=== PATIENT | female | born 1950 | race Caucasian/White ===

== ENCOUNTER 2016-10-28 10:35 | Inpatient (IN) | payer MEDICARE, OTHER ==
--- NOTE | 2016-10-28 10:58 | ER Document Report ---
ED Cardiac - General Stated Complaint: HEART ISSUES Notes: Patient says that she awakened about 2 AM this morning with a headache and feeling nauseated. EMS was called this morning because she continues to have nausea, but has not vomited. She still has the headache as well. It is global and not associated with any neurologic symptoms or deficits. Patient has long- standing atrial fibrillation and is on Eliquis 5 mg twice a day. Patient was just in [place] yesterday seeing her internal medicine doctor ( Latha) who told her he was going to try to get her scheduled to be cardioverted. Yesterday's visit was a routine, scheduled visit and she felt fine. As mentioned, the patient has chronic atrial fibrillation. She has undergone 2 cardiac ablation treatments unsuccessfully. 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 Patient denies any difficulty breathing or shortness of breath. Denies vomiting or diarrhea. Denies any recent illness such as cough cold or chest congestion. No fevers. - Related Data Allergies/Adverse Reactions: No Known Allergies Allergy (Verified 01/03/14 20:52) Past Medical History - Social History Smoking Status: Unknown if Ever Smoked Cigarette use (# per day): No Family History: Reviewed & Not Pertinent - Past Medical History Cardiac Medical History: Reports: Hx Atrial Fibrillation, Hx Hypercholesterolemia, Hx Hypertension Neurological Medical History: Denies: Hx Cerebrovascular Accident Endocrine Medical History: Denies: Hx Diabetes Mellitus Type 1, Hx Diabetes Mellitus Type 2 GI Medical History: Reports: Hx Gastroesophageal Reflux Disease Past Surgical History: Reports: Hx Cardiac Surgery - [id number] and 01/03/14 - Immunizations Hx Diphtheria, Pertussis, Tetanus Vaccination: Yes Review of Systems - Review of Systems Notes: REVIEW OF SYSTEMS: CONSTITUTIONAL : Denies fever. EENT: Denies eye, ear, nose or mouth or throat pain or other symptoms. CARDIOVASCULAR: Denies chest pain. RESPIRATORY: Denies cough, chest congestion, or shortness of breath. GASTROINTESTINAL: Denies abdominal pain or diarrhea. Is nauseated. GENITOURINARY: Denies difficulty or painful urinating, urinary frequency, blood in urine. MUSCULOSKELETAL: Denies back or neck pain. Denies joint pain or swelling. SKIN: Denies rash or skin lesions. NEUROLOGICAL: Denies LOC or altered mental status. Has a headache--see history of present illness. Denies sensory loss or motor deficits. ALL OTHER SYSTEMS REVIEWED AND NEGATIVE. Physical Exam - Vital signs Vitals: Resp 28 H 10/28/16 10:54 Interpretation: Tachycardic, Other - Irregular pulse - Notes Notes: PHYSICAL EXAMINATION: GENERAL: Well-appearing, in no acute distress. Vital signs: Irregular, atrial fibrillation rhythm with heart rate of about 126 at this time my examination. HEAD: Atraumatic, normocephalic. EYES: Pupils equal round and reactive to light, extraocular movements intact. ENT: oropharynx clear without exudates. Moist mucous membranes. NECK: Normal range of motion, supple. LUNGS: Breath sounds clear and equal bilaterally. HEART: Irregularly irregular rate and rhythm without murmurs. ABDOMEN: Soft, nontender. No guarding or rebound. BACK: No tenderness throughout entire back. EXTREMITIES: Normal range of motion without pain. NEUROLOGICAL: Normal speech, normal gait. Normal sensory, motor, and reflex exams. Awake, alert, and oriented x3. Cranial nerves normal. PSYCH: Normal mood, normal affect. SKIN: Warm, dry, no rashes. Course - Re-evaluation Re-evalutation: 10/28/16 13:32 Spoke with patient's primary care provider in [place], Dr. Azul. 10/28/16 14:12 Have spoken with transfer center at [facility]. 10/28/16 15:11 Spoke with transfer center again at [facility]. They do not have any medical beds and do not expect to have any medical beds today. Informed the patient and family of this situation and they understand and are agreeable to being admitted to this hospital. I spoke with Dr. Butt who will admit patient to IMCU for antibiotic treatment and control of her A. fib with RVR. - Vital Signs Vital signs: Temp Pulse Resp BP Pulse Ox 25 H 114/67 98 10/28/16 14:00 10/28/16 13:00 10/28/16 14:00 - Laboratory Result Diagrams: 10/28/16 12:00 10/28/16 12:00 Laboratory results interpreted by me: 10/28/16 10/28/16 10/28/16 12:00 12:00 12:00 WBC 24.9 H RDW 14.2 H Seg Neuts % (Manual) 93 H Lymphocytes % (Manual) 2 L Abs Neuts (Manual) 23.2 H PT 17.3 H Est GFR (Non-Af Amer) 59 L Glucose 135 H Urine Blood Ur Leukocyte Esterase 10/28/16 14:16 WBC RDW Seg Neuts % (Manual) Lymphocytes % (Manual) Abs Neuts (Manual) PT Est GFR (Non-Af Amer) Glucose Urine Blood MODERATE H Ur Leukocyte Esterase LARGE H Patient urine looks like a urinary infection. Critical Care Note - Critical Care Note Total time excluding time spent on procedures (mins): 70 Discharge - Discharge Clinical Impression: Atrial fibrillation with rapid ventricular response Urinary tract infection Qualifiers: Urinary tract infection type: site unspecified Hematuria presence: without hematuria Qualified Code(s): N39.0 - Urinary tract infection, site not specified Condition: Stable Disposition: ADMITTED INPATIENT Admitting Provider: Hospitalist Unit Admitted: [facility]
[2016-10-28] MEDS ORDERED: ONDANSETRON HCL INJ/PF 4 MG/2 ML SDV IV ONE (11:19)
[2016-10-28] MEDS ORDERED: DILTIAZEM HCL INJ 25 MG/5 ML VIAL IV ONE ×2 (11:25→17:21)
[2016-10-28 12:11] LABS: HEMATOCRIT 36.4 % (36.0-47.0); HGB HCT DIFFERENCE -0.4; MEAN CORPUSCULAR HEMOGLOBIN 27.4 pg (27.0-33.4); MEAN CORPUSCULAR HGB CONC 33.1 g/dL (32.0-36.0); MEAN CORPUSCULAR VOLUME 83 fl (80-97); RED CELL DISTRIBUTION WIDTH 14.2 % (11.5-14.0); WHITE BLOOD COUNT 24.9 10^3/uL (4.0-10.5)
[2016-10-28 12:17] LABS: PROTHROMBIN TIME 17.3 SEC (11.4-15.4)
[2016-10-28 12:32] LABS: ALANINE AMINOTRANSFERASE 26 U/L (9-52); ALKALINE PHOSPHATASE 114 U/L (38-126); ANION GAP 14 (5-19); ASPARTATE AMINO TRANSFERASE 15 U/L (14-36); BILIRUBIN,DIRECT 0.3 mg/dL (0.0-0.4); BILIRUBIN,TOTAL 1.1 mg/dL (0.2-1.3); BLOOD UREA NITROGEN 18 mg/dL (7-20); CALCIUM 9.8 mg/dL (8.4-10.2); CARBON DIOXIDE 27 mmol/L (22-30); CHLORIDE 99 mmol/L (98-107); CREATINE KINASE 35 U/L (30-135); CREATININE RESULT 0.95 mg/dL (0.52-1.25); GLUCOSE 135 mg/dL (75-110); POTASSIUM 4.2 mmol/L (3.6-5.0); SODIUM 139.9 mmol/L (137-145); TOTAL PROTEIN 7.2 g/dL (6.3-8.2)
[2016-10-28 12:35] LABS: BASOPHILS % (MANUAL) 0 % (0-2); EOSINOPHILS % (MANUAL) 0 % (0-6); LYMPHOCYTES % (MANUAL) 2 % (13-45); TOTAL CELLS COUNTED 100
[2016-10-28 12:36] LABS: ANISOCYTOSIS SLIGHT; OVALOCYTES SLIGHT; POIKILOCYTOSIS SLIGHT
[2016-10-28 12:49] LABS: CREATINE KINASE MB < 0.22 ng/mL (<4.55); TROPONIN I < 0.012 ng/mL
[2016-10-28] MEDS ORDERED: CEFTRIAXONE 2 GM/D5W RTU 50 ML IV ONE (13:32)
--- NOTE | 2016-10-28 14:20 | EKG REPORT ---
SEVERITY:- ABNORMAL ECG - ATRIAL FIBRILLATION, V-RATE 90-185 BORDERLINE R WAVE PROGRESSION, ANTERIOR LEADS BORDERLINE T ABNORMALITIES, ANTERIOR LEADS : Confirmed by: Yisel Daniel 28-Oct-2016 14:20:03
[2016-10-28 14:37] LABS: APPEARANCE,URINE CLOUDY; BILIRUBIN,URINE NEGATIVE (NEGATIVE); GLUCOSE, URINE NEGATIVE (NEGATIVE); KETONES,URINE NEGATIVE (NEGATIVE); LEUKOCYTE ESTERASE,URINE LARGE (NEGATIVE); NITRITE,URINE NEGATIVE (NEGATIVE); PROTEIN,URINE NEGATIVE (NEGATIVE); URINE SPECIFIC GRAVITY 1.021; UROBILINOGEN,URINE NEGATIVE mg/dL (<2.0)
[2016-10-28] MEDS ORDERED: PROMETHAZINE HCL 25 MG TABLET PO ONE (15:12)
[2016-10-28] MEDS ORDERED: OXYCODONE-ACETAMINOPHEN 5-325 MG TABLET PO ONE (15:12)
[2016-10-28] MEDS ORDERED: NORMAL SALINE 1000 ML 1,000 ML IV PRN (17:13)
--- NOTE | 2016-10-28 17:35 | PDOC H&P ---
History of Present Illness Admission Date/PCP: 10/28/16 15:22 Patient complains of: headache History of Present Illness: SHAWN DANIEL is a 66 year old female Patient says that she awakened about 2 AM this morning with a headache and feeling nauseated. EMS was called this morning because she continues to have nausea, but has not vomited. She still has the headache as well. It is global and not associated with any neurologic symptoms or deficits. Patient has long- standing atrial fibrillation and is on Eliquis 5 mg twice a day. Patient was just in [place] yesterday seeing her internal medicine doctor ( Latha) who told her he was going to try to get her scheduled to be cardioverted. Yesterday's visit was a routine, scheduled visit and she felt fine. As mentioned, the patient has chronic atrial fibrillation. She has undergone 2 cardiac ablation treatments unsuccessfully. 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 Patient denies any difficulty breathing or shortness of breath. Denies vomiting or diarrhea. Denies any recent illness such as cough cold or chest congestion. No fevers. Upon evaluation in the ER she was diagnosed of UTI and Afib with RVR She was treated with IV Ceftriaxone , IV fluids and Cardizem Drip She was subsequently admitted to [facility] as an inpatient Past Medical History Cardiac Medical History: Reports: Atrial Fibrillation, Hyperlipidema, Hypertension Endocrine Medical History: Denies: Diabetes Mellitus Type 1, Diabetes Mellitus Type 2 GI Medical History: Reports: Gastroesophageal Reflux Disease Social History Information Source: Patient Smoking Status: Never Smoker Frequency of Alcohol Use: None Hx Recreational Drug Use: No - Advance Directive Resuscitation Status: Full Code Surrogate healthcare decision maker:: Concetta Brother Family History Family History: Reviewed & Not Pertinent Parental Family History Reviewed: Yes Children Family History Reviewed: Yes Sibling(s) Family History Reviewed.: Yes Medication/Allergy Home Medications: Apixaban [Eliquis] 5 mg PO Q12 10/28/16 Atorvastatin Calcium 20 mg PO QHS 10/28/16 Carvedilol 25 mg PO Q12 10/28/16 Cetirizine HCl [Allergy] 10 mg PO QPM 10/28/16 Enalapril Maleate [Vasotec 10 mg Tablet] 10 mg PO BID 10/28/16 Furosemide [Lasix] 40 mg PO PRN PRN 10/28/16 Hydrochlorothiazide 12.5 mg PO DAILY 10/28/16 Rabeprazole Sodium 20 mg PO DAILY 10/28/16 Allergies/Adverse Reactions: No Known Allergies Allergy (Verified 01/03/14 20:52) Review of Systems Constitutional: PRESENT: headache(s). ABSENT: chills, fever(s), weight gain, weight loss Eyes: ABSENT: visual disturbances Ears: ABSENT: hearing changes Cardiovascular: ABSENT: chest pain, dyspnea on exertion, edema, orthropnea, palpitations Respiratory: ABSENT: cough, hemoptysis Gastrointestinal: PRESENT: nausea. ABSENT: abdominal pain, constipation, diarrhea, hematemesis, hematochezia, vomiting Genitourinary: ABSENT: dysuria, hematuria Musculoskeletal: ABSENT: joint swelling Integumentary: ABSENT: rash, wounds Neurological: ABSENT: abnormal gait, abnormal speech, confusion, dizziness, focal weakness, syncope Psychiatric: ABSENT: anxiety, depression, homidical ideation, suicidal ideation Endocrine: ABSENT: cold intolerance, heat intolerance, polydipsia, polyuria Hematologic/Lymphatic: ABSENT: easy bleeding, easy bruising Physical Exam Vital Signs: Temp Pulse Resp BP Pulse Ox 25 H 114/67 98 10/28/16 14:00 10/28/16 13:00 10/28/16 14:00 General appearance: PRESENT: no acute distress, obese Head exam: PRESENT: atraumatic, normocephalic Eye exam: PRESENT: conjunctiva pink, EOMI, PERRLA. ABSENT: scleral icterus Neck exam: ABSENT: carotid bruit, JVD, lymphadenopathy, thyromegaly Respiratory exam: PRESENT: clear to auscultation mehnaz. ABSENT: rales, rhonchi, wheezes Cardiovascular exam: PRESENT: irregular rhythm. ABSENT: diastolic murmur, rubs , systolic murmur Pulses: PRESENT: normal dorsalis pedis pul GI/Abdominal exam: PRESENT: normal bowel sounds, soft. ABSENT: distended, guarding, mass, organolmegaly, rebound, tenderness Rectal exam: PRESENT: deferred Extremities exam: PRESENT: full ROM. ABSENT: calf tenderness, clubbing, pedal edema Neurological exam: PRESENT: alert, awake, oriented to person, oriented to place , oriented to time, oriented to situation, CN II-XII grossly intact. ABSENT: motor sensory deficit Psychiatric exam: PRESENT: appropriate affect, normal mood. ABSENT: homicidal ideation, suicidal ideation Skin exam: PRESENT: dry, intact, warm. ABSENT: cyanosis, rash Results Laboratory Results: Labs- All tests 24 hr 10/28/16 10/28/16 10/28/16 12:00 12:00 12:00 WBC 24.9 H RBC 4.40 Hgb 12.0 Hct 36.4 MCV 83 MCH 27.4 MCHC 33.1 RDW 14.2 H Plt Count 220 Total Counted 100 Seg Neutrophils % Not Reportable Seg Neuts % (Manual) 93 H Lymphocytes % Not Reportable Lymphocytes % (Manual) 2 L Atypical Lymphs % 2 Monocytes % Not Reportable Monocytes % (Manual) 3 Eosinophils % Not Reportable Eosinophils % (Manual) 0 Basophils % Not Reportable Basophils % (Manual) 0 Absolute Neutrophils Not Reportable Abs Neuts (Manual) 23.2 H Absolute Lymphocytes Not Reportable Abs Lymphs (Manual) 1.0 Absolute Monocytes Not Reportable Abs Monocytes (Manual) 0.7 Absolute Eosinophils Not Reportable Absolute Eos (Manual) 0.0 Absolute Basophils Not Reportable Abs Basophils (Manual) 0.0 Platelet Comment ADEQUATE Poikilocytosis SLIGHT Anisocytosis SLIGHT Ovalocytes SLIGHT PT INR Sodium 139.9 Potassium 4.2 Chloride 99 Carbon Dioxide 27 Anion Gap 14 BUN 18 Creatinine 0.95 Est GFR ( Amer) > 60 Est GFR (Non-Af Amer) 59 L Glucose 135 H Calcium 9.8 Total Bilirubin 1.1 Direct Bilirubin 0.3 Indirect Bilirubin Not Reportable Neonat Total Bilirubin Not Reportable AST 15 ALT 26 Alkaline Phosphatase 114 Creatine Kinase 35 CK-MB (CK-2) < 0.22 Troponin I < 0.012 Total Protein 7.2 Albumin 4.0 Urine Color Urine Appearance Urine pH Ur Specific [place] Urine Protein Urine Glucose (UA) Urine Ketones Urine Blood Urine Nitrite Urine Bilirubin Urine Urobilinogen Ur Leukocyte Esterase Urine WBC (Auto) Urine RBC (Auto) Urine Bacteria (Auto) Urine WBC Clumps Squamous Epi Cells Auto U Non-Squamous Epis Auto Urine Mucus (Auto) Urine Ascorbic Acid 10/28/16 10/28/16 12:00 14:16 WBC RBC Hgb Hct MCV MCH MCHC RDW Plt Count Total Counted Seg Neutrophils % Seg Neuts % (Manual) Lymphocytes % Lymphocytes % (Manual) Atypical Lymphs % Monocytes % Monocytes % (Manual) Eosinophils % Eosinophils % (Manual) Basophils % Basophils % (Manual) Absolute Neutrophils Abs Neuts (Manual) Absolute Lymphocytes Abs Lymphs (Manual) Absolute Monocytes Abs Monocytes (Manual) Absolute Eosinophils Absolute Eos (Manual) Absolute Basophils Abs Basophils (Manual) Platelet Comment Poikilocytosis Anisocytosis Ovalocytes PT 17.3 H INR 1.36 Sodium Potassium Chloride Carbon Dioxide Anion Gap BUN Creatinine Est GFR ( Amer) Est GFR (Non-Af Amer) Glucose Calcium Total Bilirubin Direct Bilirubin Indirect Bilirubin Neonat Total Bilirubin AST ALT Alkaline Phosphatase Creatine Kinase CK-MB (CK-2) Troponin I Total Protein Albumin Urine Color YELLOW Urine Appearance CLOUDY Urine pH 5.0 Ur Specific [place] 1.021 Urine Protein NEGATIVE Urine Glucose (UA) NEGATIVE Urine Ketones NEGATIVE Urine Blood MODERATE H Urine Nitrite NEGATIVE Urine Bilirubin NEGATIVE Urine Urobilinogen NEGATIVE Ur Leukocyte Esterase LARGE H Urine WBC (Auto) >182 Urine RBC (Auto) 29 Urine Bacteria (Auto) 1+ Urine WBC Clumps FEW Squamous Epi Cells Auto 2 U Non-Squamous Epis Auto 2 Urine Mucus (Auto) RARE Urine Ascorbic Acid NEGATIVE EKG Comments: ATRIAL FIBRILLATION, V-RATE 90-185 [AMI1] . BORDERLINE R WAVE PROGRESSION, ANTERIOR LEADS [T0AN] . BORDERLINE T ABNORMALITIES, ANTERIOR LEADS Impressions: Chest X-Ray 10/28/16 10:44 IMPRESSION: NO ACUTE RADIOGRAPHIC FINDING IN THE CHEST. Head CT 10/28/16 11:18 IMPRESSION: No acute intracranial abnormality identified. Assessment & Plan - Diagnosis (1) Atrial fibrillation with rapid ventricular response Is this a current diagnosis for this admission?: Yes (2) Urinary tract infection Qualifiers: Urinary tract infection type: site unspecified Hematuria presence: without hematuria Qualified Code(s): N39.0 - Urinary tract infection, site not specified Is this a current diagnosis for this admission?: Yes - Time Time Spent: Greater than 70 Minutes - Inpatient Certification Based on my medical assessment, after consideration of the patient's comorbidities, presenting symptoms, or acuity I expect that the services needed warrant INPATIENT care.: Yes I certify that my determination is in accordance with my understanding of Medicare's requirements for reasonable and necessary INPATIENT services [42 CFR 412.3e].: Yes Medical Necessity: Need For IV Fluids, Need For Continuous Telemetry Monitoring , Need for IV Antibiotics
[2016-10-28] MEDS ORDERED: DILTIAZEM HCL/D5W 125 ML IV PRN (18:12)
[2016-10-28] MEDS: APIXABAN 5 MG TABLET PO SCH (21:57)
[2016-10-28] MEDS: CARVEDILOL 12.5 MG TABLET PO SCH (21:58)
[2016-10-28] MEDS: ATORVASTATIN CALCIUM 20 MG TABLET PO SCH (21:59)
[2016-10-28] MEDS: CEFTRIAXONE 1 GM/D5W RTU 50 ML IV SCH (21:59)
[2016-10-28] MEDS ORDERED: (PENDING PHARMACY ID) (Carvedilol [Carvedilol] 25 MG) PO SCH (22:00)
[2016-10-28] MEDS: FAMOTIDINE INJ/PF 20 MG/2 ML SDV IV SCH (22:00)
[2016-10-29] MEDS: CETIRIZINE 10 MG TABLET PO SCH ×2 (02:46→17:33)
[2016-10-29 06:34] LABS: HEMATOCRIT 33.8 % (36.0-47.0); HEMOGLOBIN 11.2 g/dL (12.0-15.5); HGB HCT DIFFERENCE -0.2; MEAN CORPUSCULAR HEMOGLOBIN 27.4 pg (27.0-33.4); MEAN CORPUSCULAR HGB CONC 33.2 g/dL (32.0-36.0); MEAN CORPUSCULAR VOLUME 83 fl (80-97); RED BLOOD COUNT 4.09 10^6/uL (3.72-5.28); RED CELL DISTRIBUTION WIDTH 14.2 % (11.5-14.0); WHITE BLOOD COUNT 20.1 10^3/uL (4.0-10.5)
[2016-10-29 06:50] LABS: ALANINE AMINOTRANSFERASE 21 U/L (9-52); ALBUMIN 3.5 g/dL (3.5-5.0); ALKALINE PHOSPHATASE 93 U/L (38-126); ANION GAP 13 (5-19); ASPARTATE AMINO TRANSFERASE 17 U/L (14-36); BASOPHILS % (MANUAL) 0 % (0-2); BILIRUBIN,DIRECT 0.4 mg/dL (0.0-0.4); BILIRUBIN,TOTAL 0.8 mg/dL (0.2-1.3); BLOOD UREA NITROGEN 29 mg/dL (7-20); CALCIUM 8.9 mg/dL (8.4-10.2); CARBON DIOXIDE 25 mmol/L (22-30); CHLORIDE 99 mmol/L (98-107); CHOLESTEROL 124.69 mg/dL (0-200); CREATININE RESULT 1.39 mg/dL (0.52-1.25); Direct HDL 50 mg/dL (>40); EOSINOPHILS % (MANUAL) 2 % (0-6); GLUCOSE 117 mg/dL (75-110); LYMPHOCYTES % (MANUAL) 7 % (13-45); POTASSIUM 3.9 mmol/L (3.6-5.0); SODIUM 136.6 mmol/L (137-145); TOTAL CELLS COUNTED 100; TOTAL PROTEIN 6.5 g/dL (6.3-8.2); TRIGLYCERIDES 76 mg/dL (<150)
[2016-10-29 06:51] LABS: RBC MORPHOLOGY COMMENT NORMO-CYTIC/CHROMIC
[2016-10-29 07:01] LABS: DIRECT LDL 48 mg/dL (<100)
[2016-10-29 07:12] LABS: TROPONIN I < 0.012 ng/mL
--- NOTE | 2016-10-29 09:36 | EKG REPORT ---
SEVERITY:- ABNORMAL ECG - ATRIAL FIBRILLATION, V-RATE 65-106 BORDERLINE R WAVE PROGRESSION, ANTERIOR LEADS BORDERLINE T ABNORMALITIES, DIFFUSE LEADS : Confirmed by: Yisel Daniel 29-Oct-2016 09:35:59
[2016-10-29] MEDS ORDERED: (PENDING PHARMACY ID) (Rabeprazole Sodium [Rabeprazole Sodium] 20 MG) PO SCH (10:00)
[2016-10-29] MEDS: CEFTRIAXONE 1 GM/D5W RTU 50 ML IV SCH (10:00)
[2016-10-29] MEDS ORDERED: HYDROCHLOROTHIAZIDE 12.5 MG CAPSULE PO SCH (10:00)
[2016-10-29] MEDS: FAMOTIDINE INJ/PF 20 MG/2 ML SDV IV SCH ×2 (10:08→22:00)
[2016-10-29] MEDS: LANSOPRAZOLE 30 MG TAB.RAP.DR PO SCH (10:08)
[2016-10-29] MEDS: CARVEDILOL 12.5 MG TABLET PO SCH ×2 (10:08→22:00)
[2016-10-29] MEDS: APIXABAN 5 MG TABLET PO SCH ×2 (10:09→22:01)
[2016-10-29] MEDS ORDERED: DILTIAZEM HCL 120 MG CAP.SR.24H PO ONE (14:00)
--- NOTE | 2016-10-29 15:02 | PDOC PROGRESS REPORT ---
Subjective Progress Note for:: 10/29/16 Subjective:: Patient is feeling a lot better No fever no chills The atrial fibrillation is now rate controlled at the rate of 60-70 Leukocytosis is persistent Urine culture is pending Physical Exam Vital Signs: Temp Pulse Resp BP Pulse Ox 98.3 F 76 12 107/59 L 97 10/29/16 12:00 10/29/16 12:00 10/29/16 12:00 10/29/16 14:02 10/29/16 12:00 Intake & Output 10/28/16 10/29/16 10/30/16 00:59 00:59 00:59 Intake Total 637 Output Total 200 Balance 437 Weight 119.5 kg 120 kg General appearance: PRESENT: no acute distress, well-developed, well-nourished Head exam: PRESENT: atraumatic, normocephalic Eye exam: PRESENT: conjunctiva pink, EOMI, PERRLA. ABSENT: scleral icterus Ear exam: PRESENT: normal external ear exam Mouth exam: PRESENT: moist, tongue midline Neck exam: ABSENT: carotid bruit, JVD, lymphadenopathy, thyromegaly Respiratory exam: PRESENT: clear to auscultation mehnaz. ABSENT: rales, rhonchi, wheezes Cardiovascular exam: PRESENT: RRR. ABSENT: diastolic murmur, rubs, systolic murmur Pulses: PRESENT: normal dorsalis pedis pul Vascular exam: PRESENT: normal capillary refill GI/Abdominal exam: PRESENT: normal bowel sounds, soft. ABSENT: distended, guarding, mass, organolmegaly, rebound, tenderness Rectal exam: PRESENT: deferred Extremities exam: PRESENT: full ROM. ABSENT: calf tenderness, clubbing, pedal edema Neurological exam: PRESENT: alert, awake, oriented to person, oriented to place , oriented to time, oriented to situation, CN II-XII grossly intact. ABSENT: motor sensory deficit Psychiatric exam: PRESENT: appropriate affect, normal mood. ABSENT: homicidal ideation, suicidal ideation Skin exam: PRESENT: dry, intact, warm. ABSENT: cyanosis, rash Results Laboratory Results: 10/29/16 06:03 10/29/16 06:03 10/29/16 10/29/16 10/29/16 06:03 06:03 06:10 WBC 20.1 H RBC 4.09 Hgb 11.2 L Hct 33.8 L MCV 83 MCH 27.4 MCHC 33.2 RDW 14.2 H Plt Count 191 Seg Neutrophils % Not Reportable Lymphocytes % Not Reportable Monocytes % Not Reportable Eosinophils % Not Reportable Basophils % Not Reportable Absolute Neutrophils Not Reportable Absolute Lymphocytes Not Reportable Absolute Monocytes Not Reportable Absolute Eosinophils Not Reportable Absolute Basophils Not Reportable Sodium 136.6 L Potassium 3.9 Chloride 99 Carbon Dioxide 25 Anion Gap 13 BUN 29 H Creatinine 1.39 H Est GFR ( Amer) 46 L Est GFR (Non-Af Amer) 38 L Glucose 117 H Calcium 8.9 Total Bilirubin 0.8 AST 17 ALT 21 Alkaline Phosphatase 93 Total Protein 6.5 Albumin 3.5 Triglycerides 76 Cholesterol 124.69 LDL Cholesterol Direct 48 VLDL Cholesterol 15.0 HDL Cholesterol 50 TSH 1.77 10/28/16 10/28/16 10/29/16 17:16 23:15 06:03 Troponin I < 0.012 < 0.012 < 0.012 NT-Pro-B Natriuret Pep 1980 H Impressions: Chest X-Ray 10/28/16 10:44 IMPRESSION: NO ACUTE RADIOGRAPHIC FINDING IN THE CHEST. Head CT 10/28/16 11:18 IMPRESSION: No acute intracranial abnormality identified. Assessment & Plan - Diagnosis (1) Atrial fibrillation with rapid ventricular response Is this a current diagnosis for this admission?: YesPlan: Improved We'll switch to Cardizem CD And discontinue Cardizem drip (2) Urinary tract infection Qualifiers: Urinary tract infection type: site unspecified Hematuria presence: without hematuria Qualified Code(s): N39.0 - Urinary tract infection, site not specified Is this a current diagnosis for this admission?: YesPlan: With early sepsis patient did have marked leukocytosis and tachycardia We'll switch the antibiotic to Zosyn for broader coverage - Time Time Spent with patient: 25-34 minutes - We will keep the patient another 24 hours for close cardiac monitoring
[2016-10-29] MEDS: LACTOBACILLUS ACIDOPHILUS 250 MG TAB PO SCH (17:34)
[2016-10-29] MEDS ORDERED: PIPERACILLIN SODIUM/TAZOBACTAM 2.25 GM in NORMAL SALINE 50 ML IV SCH (18:00)
[2016-10-29] MEDS ORDERED: PIPERACILLIN SODIUM/TAZOBACTAM 3.375 GM in NORMAL SALINE 100 ML IV SCH (18:00)
[2016-10-29] MEDS: PIPERACILLIN SODIUM/TAZOBACTAM 2.25 GM in NORMAL SALINE 50 ML IV SCH ×2 (18:53→23:55)
[2016-10-29] MEDS: ATORVASTATIN CALCIUM 20 MG TABLET PO SCH (22:01)
[2016-10-30] MEDS: PIPERACILLIN SODIUM/TAZOBACTAM 2.25 GM in NORMAL SALINE 50 ML IV SCH ×3 (06:08→17:37)
[2016-10-30] MEDS: DILTIAZEM HCL 120 MG CAP.SR.24H PO SCH (09:12)
[2016-10-30] MEDS: CARVEDILOL 12.5 MG TABLET PO SCH ×2 (09:12→22:12)
[2016-10-30] MEDS: FAMOTIDINE INJ/PF 20 MG/2 ML SDV IV SCH ×2 (09:12→22:12)
[2016-10-30] MEDS: LANSOPRAZOLE 30 MG TAB.RAP.DR PO SCH (09:12)
[2016-10-30] MEDS: LACTOBACILLUS ACIDOPHILUS 250 MG TAB PO SCH ×2 (09:12→17:37)
[2016-10-30] MEDS: APIXABAN 5 MG TABLET PO SCH ×2 (09:12→22:13)
--- NOTE | 2016-10-30 13:20 | PDOC PROGRESS REPORT ---
Subjective Progress Note for:: 10/30/16 Subjective:: doing well no complaints in afib with controlled ventricular rate urine culture grew gram negative bacilli sensitivity identification pending Physical Exam Vital Signs: Temp Pulse Resp BP Pulse Ox 98.5 F 93 20 124/66 98 10/30/16 07:28 10/30/16 07:28 10/30/16 07:28 10/30/16 07:28 10/30/16 07:28 Intake & Output 10/29/16 10/30/16 10/31/16 00:59 00:59 00:59 Intake Total 1462 1160 Output Total 200 Balance 1262 1160 Weight 119.5 kg 120 kg 102.1 kg General appearance: PRESENT: no acute distress, well-developed, well-nourished Head exam: PRESENT: atraumatic, normocephalic Eye exam: PRESENT: conjunctiva pink, EOMI, PERRLA. ABSENT: scleral icterus Ear exam: PRESENT: normal external ear exam Mouth exam: PRESENT: moist, tongue midline Neck exam: ABSENT: carotid bruit, JVD, lymphadenopathy, thyromegaly Respiratory exam: PRESENT: clear to auscultation mehnaz. ABSENT: rales, rhonchi, wheezes Cardiovascular exam: PRESENT: irregular rhythm. ABSENT: diastolic murmur, rubs , systolic murmur Pulses: PRESENT: normal dorsalis pedis pul Vascular exam: PRESENT: normal capillary refill GI/Abdominal exam: PRESENT: normal bowel sounds, soft. ABSENT: distended, guarding, mass, organolmegaly, rebound, tenderness Rectal exam: PRESENT: deferred Extremities exam: PRESENT: full ROM. ABSENT: calf tenderness, clubbing, pedal edema Neurological exam: PRESENT: alert, awake, oriented to person, oriented to place , oriented to time, oriented to situation, CN II-XII grossly intact. ABSENT: motor sensory deficit Psychiatric exam: PRESENT: appropriate affect, normal mood. ABSENT: homicidal ideation, suicidal ideation Skin exam: PRESENT: dry, intact, warm. ABSENT: cyanosis, rash Results Laboratory Results: 10/29/16 06:03 10/29/16 06:03 10/28/16 10/28/16 10/29/16 17:16 23:15 06:03 Troponin I < 0.012 < 0.012 < 0.012 NT-Pro-B Natriuret Pep 1980 H Impressions: Chest X-Ray 10/28/16 10:44 IMPRESSION: NO ACUTE RADIOGRAPHIC FINDING IN THE CHEST. Head CT 10/28/16 11:18 IMPRESSION: No acute intracranial abnormality identified. Assessment & Plan - Diagnosis (1) Atrial fibrillation with rapid ventricular response Is this a current diagnosis for this admission?: Yes (2) Urinary tract infection Qualifiers: Urinary tract infection type: site unspecified Hematuria presence: without hematuria Qualified Code(s): N39.0 - Urinary tract infection, site not specified Is this a current diagnosis for this admission?: Yes - Time Time Spent with patient: will keep patient until culture results are available continue zosyn Time Spent with patient: 25-34 minutes
[2016-10-30] MEDS: CETIRIZINE 10 MG TABLET PO SCH (17:37)
[2016-10-30] MEDS: ATORVASTATIN CALCIUM 20 MG TABLET PO SCH (22:12)
[2016-10-31] MEDS: PIPERACILLIN SODIUM/TAZOBACTAM 2.25 GM in NORMAL SALINE 50 ML IV SCH ×3 (00:29→12:37)
[2016-10-31] MEDS: DILTIAZEM HCL 120 MG CAP.SR.24H PO SCH (09:39)
[2016-10-31] MEDS: APIXABAN 5 MG TABLET PO SCH (09:40)
[2016-10-31] MEDS: CARVEDILOL 12.5 MG TABLET PO SCH (09:40)
[2016-10-31] MEDS: FAMOTIDINE INJ/PF 20 MG/2 ML SDV IV SCH (09:40)
[2016-10-31] MEDS: LACTOBACILLUS ACIDOPHILUS 250 MG TAB PO SCH (09:40)
[2016-10-31] MEDS: LANSOPRAZOLE 30 MG TAB.RAP.DR PO SCH (09:40)
[2016-10-31 14:03] VITALS: BP 114/68
--- NOTE | 2016-10-31 15:20 | PDOC DISCHARGE SUMMARY ---
General - Admit/Disc Date/PCP Admission Date/Primary Care Provider: 10/28/16 17:13 Dr Kaminski [place] Discharge Date: 10/31/16 - Discharge Diagnosis (1) Atrial fibrillation with rapid ventricular response Is this a current diagnosis for this admission?: YesSummary: Patient presented to the ED with atrial fibrillation and rapid ventricular rate She was treated with Cardizem IV and Cardizem drip She was discharged on Cardizem CD 120 mg daily to be added to the prior medication Anticoagulation with Eliquis was continued (2) Urinary tract infection Is this a current diagnosis for this admission?: YesSummary: Isolation of a gram-negative was difficult ; we discharged the patient on Augmentin and Levaquin as she clinically improved on Zosyn during her hospitalization - Additional Information Resuscitation Status: Full Code Discharge Diet: Cardiac Discharge Activity: Activity As Tolerated Home Medications: Apixaban [Eliquis] 5 mg PO Q12 10/28/16 Atorvastatin Calcium 20 mg PO QHS 10/28/16 Carvedilol 25 mg PO Q12 10/28/16 Cetirizine HCl [Allergy] 10 mg PO QPM 10/28/16 Furosemide [Lasix] 40 mg PO PRN PRN 10/28/16 Rabeprazole Sodium 20 mg PO DAILY 10/28/16 Amoxicillin/Potassium Clav [Augmentin 875-125 Tablet] 1 each PO BID #14 tablet 10/31/16 Diltiazem HCl [Cardizem Cd 120 mg Capsule] 120 mg PO DAILY #30 cap.sr.24h Enalapril Maleate [Vasotec 5 mg Tablet] 5 mg PO DAILY #30 tablet 10/31/16 Levofloxacin [Levaquin 750 mg Tablet] 750 mg PO DAILY #7 tablet 10/31/16 History of Present Illness Patient complains of: Nausea weakness History of Present Illness: SHAWN DANIEL is a 66 year old female Patient says that she awakened about 2 AM this morning with a headache and feeling nauseated. EMS was called this morning because she continues to have nausea, but has not vomited. She still has the headache as well. It is global and not associated with any neurologic symptoms or deficits. Patient has long- standing atrial fibrillation and is on Eliquis 5 mg twice a day. Patient was just in [place] yesterday seeing her internal medicine doctor ( Latha) who told her he was going to try to get her scheduled to be cardioverted. Yesterday's visit was a routine, scheduled visit and she felt fine. As mentioned, the patient has chronic atrial fibrillation. She has undergone 2 cardiac ablation treatments unsuccessfully. 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 Patient denies any difficulty breathing or shortness of breath. Denies vomiting or diarrhea. Denies any recent illness such as cough cold or chest congestion. No fevers. Upon evaluation in the ER she was diagnosed of UTI and Afib with RVR She was treated with IV Ceftriaxone , IV fluids and Cardizem Drip She was subsequently admitted to [facility] as an inpatient Hospital Course Hospital Course: See above Physical Exam Vital Signs: Temp Pulse Resp BP Pulse Ox 99.0 F 96 18 114/68 98 10/31/16 14:01 10/31/16 14:01 10/31/16 14:01 10/31/16 14:01 10/31/16 14:01 Intake & Output 10/30/16 10/31/16 11/01/16 00:59 00:59 00:59 Intake Total 1462 2808 858 Output Total 200 Balance 1262 2808 858 Weight 120 kg 102.1 kg 122 kg General appearance: PRESENT: no acute distress, well-developed, well-nourished Head exam: PRESENT: atraumatic, normocephalic Eye exam: PRESENT: conjunctiva pink, EOMI, PERRLA. ABSENT: scleral icterus Ear exam: PRESENT: normal external ear exam Mouth exam: PRESENT: moist, tongue midline Neck exam: ABSENT: carotid bruit, JVD, lymphadenopathy, thyromegaly Respiratory exam: PRESENT: clear to auscultation mehnaz. ABSENT: rales, rhonchi, wheezes Cardiovascular exam: PRESENT: irregular rhythm. ABSENT: diastolic murmur, rubs , systolic murmur Pulses: PRESENT: normal dorsalis pedis pul Vascular exam: PRESENT: normal capillary refill GI/Abdominal exam: PRESENT: normal bowel sounds, soft. ABSENT: distended, guarding, mass, organolmegaly, rebound, tenderness Rectal exam: PRESENT: deferred Extremities exam: PRESENT: full ROM. ABSENT: calf tenderness, clubbing, pedal edema Neurological exam: PRESENT: alert, awake, oriented to person, oriented to place , oriented to time, oriented to situation, CN II-XII grossly intact. ABSENT: motor sensory deficit Psychiatric exam: PRESENT: appropriate affect, normal mood. ABSENT: homicidal ideation, suicidal ideation Skin exam: PRESENT: dry, intact, warm. ABSENT: cyanosis, rash Results Laboratory Results: 10/29/16 06:03 10/29/16 06:03 10/28/16 10/28/16 10/29/16 17:16 23:15 06:03 Troponin I < 0.012 < 0.012 < 0.012 NT-Pro-B Natriuret Pep 1980 H Labs- Entire Visit 10/28/16 10/28/16 10/28/16 12:00 12:00 12:00 WBC 24.9 H RBC 4.40 Hgb 12.0 Hct 36.4 MCV 83 MCH 27.4 MCHC 33.1 RDW 14.2 H Plt Count 220 Total Counted 100 Seg Neutrophils % Not Reportable Seg Neuts % (Manual) 93 H Lymphocytes % Not Reportable Lymphocytes % (Manual) 2 L Atypical Lymphs % 2 Monocytes % Not Reportable Monocytes % (Manual) 3 Eosinophils % Not Reportable Eosinophils % (Manual) 0 Basophils % Not Reportable Basophils % (Manual) 0 Absolute Neutrophils Not Reportable Abs Neuts (Manual) 23.2 H Absolute Lymphocytes Not Reportable Abs Lymphs (Manual) 1.0 Absolute Monocytes Not Reportable Abs Monocytes (Manual) 0.7 Absolute Eosinophils Not Reportable Absolute Eos (Manual) 0.0 Absolute Basophils Not Reportable Abs Basophils (Manual) 0.0 Platelet Comment ADEQUATE Poikilocytosis SLIGHT Anisocytosis SLIGHT Ovalocytes SLIGHT RBC Morph Comment PT INR Sodium 139.9 Potassium 4.2 Chloride 99 Carbon Dioxide 27 Anion Gap 14 BUN 18 Creatinine 0.95 Est GFR ( Amer) > 60 Est GFR (Non-Af Amer) 59 L Glucose 135 H Calcium 9.8 Total Bilirubin 1.1 Direct Bilirubin 0.3 Indirect Bilirubin Not Reportable Neonat Total Bilirubin Not Reportable AST 15 ALT 26 Alkaline Phosphatase 114 Creatine Kinase 35 CK-MB (CK-2) < 0.22 Troponin I < 0.012 NT-Pro-B Natriuret Pep Total Protein 7.2 Albumin 4.0 Triglycerides Cholesterol LDL Cholesterol Direct VLDL Cholesterol HDL Cholesterol TSH Urine Color Urine Appearance Urine pH Ur Specific Parker Urine Protein Urine Glucose (UA) Urine Ketones Urine Blood Urine Nitrite Urine Bilirubin Urine Urobilinogen Ur Leukocyte Esterase Urine WBC (Auto) Urine RBC (Auto) Urine Bacteria (Auto) Urine WBC Clumps Squamous Epi Cells Auto U Non-Squamous Epis Auto Urine Mucus (Auto) Urine Ascorbic Acid 10/28/16 10/28/16 10/28/16 12:00 14:16 17:16 WBC RBC Hgb Hct MCV MCH MCHC RDW Plt Count Total Counted Seg Neutrophils % Seg Neuts % (Manual) Lymphocytes % Lymphocytes % (Manual) Atypical Lymphs % Monocytes % Monocytes % (Manual) Eosinophils % Eosinophils % (Manual) Basophils % Basophils % (Manual) Absolute Neutrophils Abs Neuts (Manual) Absolute Lymphocytes Abs Lymphs (Manual) Absolute Monocytes Abs Monocytes (Manual) Absolute Eosinophils Absolute Eos (Manual) Absolute Basophils Abs Basophils (Manual) Platelet Comment Poikilocytosis Anisocytosis Ovalocytes RBC Morph Comment PT 17.3 H INR 1.36 Sodium Potassium Chloride Carbon Dioxide Anion Gap BUN Creatinine Est GFR ( Amer) Est GFR (Non-Af Amer) Glucose Calcium Total Bilirubin Direct Bilirubin Indirect Bilirubin Neonat Total Bilirubin AST ALT Alkaline Phosphatase Creatine Kinase CK-MB (CK-2) Troponin I < 0.012 NT-Pro-B Natriuret Pep Total Protein Albumin Triglycerides Cholesterol LDL Cholesterol Direct VLDL Cholesterol HDL Cholesterol TSH Urine Color YELLOW Urine Appearance CLOUDY Urine pH 5.0 Ur Specific Parker 1.021 Urine Protein NEGATIVE Urine Glucose (UA) NEGATIVE Urine Ketones NEGATIVE Urine Blood MODERATE H Urine Nitrite NEGATIVE Urine Bilirubin NEGATIVE Urine Urobilinogen NEGATIVE Ur Leukocyte Esterase LARGE H Urine WBC (Auto) >182 Urine RBC (Auto) 29 Urine Bacteria (Auto) 1+ Urine WBC Clumps FEW Squamous Epi Cells Auto 2 U Non-Squamous Epis Auto 2 Urine Mucus (Auto) RARE Urine Ascorbic Acid NEGATIVE 10/28/16 10/29/16 10/29/16 23:15 06:03 06:03 WBC 20.1 H RBC 4.09 Hgb 11.2 L Hct 33.8 L MCV 83 MCH 27.4 MCHC 33.2 RDW 14.2 H Plt Count 191 Total Counted 100 Seg Neutrophils % Not Reportable Seg Neuts % (Manual) 88 H Lymphocytes % Not Reportable Lymphocytes % (Manual) 7 L Atypical Lymphs % Monocytes % Not Reportable Monocytes % (Manual) 3 Eosinophils % Not Reportable Eosinophils % (Manual) 2 Basophils % Not Reportable Basophils % (Manual) 0 Absolute Neutrophils Not Reportable Abs Neuts (Manual) 17.7 H Absolute Lymphocytes Not Reportable Abs Lymphs (Manual) 1.4 Absolute Monocytes Not Reportable Abs Monocytes (Manual) 0.6 Absolute Eosinophils Not Reportable Absolute Eos (Manual) 0.4 Absolute Basophils Not Reportable Abs Basophils (Manual) 0.0 Platelet Comment ADEQUATE Poikilocytosis Anisocytosis Ovalocytes RBC Morph Comment NORMO-CYTIC/CHROMIC PT INR Sodium Potassium Chloride Carbon Dioxide Anion Gap BUN Creatinine Est GFR ( Amer) Est GFR (Non-Af Amer) Glucose Calcium Total Bilirubin Direct Bilirubin Indirect Bilirubin Neonat Total Bilirubin AST ALT Alkaline Phosphatase Creatine Kinase CK-MB (CK-2) Troponin I < 0.012 < 0.012 NT-Pro-B Natriuret Pep 1980 H Total Protein Albumin Triglycerides Cholesterol LDL Cholesterol Direct VLDL Cholesterol HDL Cholesterol TSH Urine Color Urine Appearance Urine pH Ur Specific Parker Urine Protein Urine Glucose (UA) Urine Ketones Urine Blood Urine Nitrite Urine Bilirubin Urine Urobilinogen Ur Leukocyte Esterase Urine WBC (Auto) Urine RBC (Auto) Urine Bacteria (Auto) Urine WBC Clumps Squamous Epi Cells Auto U Non-Squamous Epis Auto Urine Mucus (Auto) Urine Ascorbic Acid 10/29/16 10/29/16 06:03 06:10 WBC RBC Hgb Hct MCV MCH MCHC RDW Plt Count Total Counted Seg Neutrophils % Seg Neuts % (Manual) Lymphocytes % Lymphocytes % (Manual) Atypical Lymphs % Monocytes % Monocytes % (Manual) Eosinophils % Eosinophils % (Manual) Basophils % Basophils % (Manual) Absolute Neutrophils Abs Neuts (Manual) Absolute Lymphocytes Abs Lymphs (Manual) Absolute Monocytes Abs Monocytes (Manual) Absolute Eosinophils Absolute Eos (Manual) Absolute Basophils Abs Basophils (Manual) Platelet Comment Poikilocytosis Anisocytosis Ovalocytes RBC Morph Comment PT INR Sodium 136.6 L Potassium 3.9 Chloride 99 Carbon Dioxide 25 Anion Gap 13 BUN 29 H Creatinine 1.39 H Est GFR ( Amer) 46 L Est GFR (Non-Af Amer) 38 L Glucose 117 H Calcium 8.9 Total Bilirubin 0.8 Direct Bilirubin 0.4 Indirect Bilirubin Not Reportable Neonat Total Bilirubin Not Reportable AST 17 ALT 21 Alkaline Phosphatase 93 Creatine Kinase CK-MB (CK-2) Troponin I NT-Pro-B Natriuret Pep Total Protein 6.5 Albumin 3.5 Triglycerides 76 Cholesterol 124.69 LDL Cholesterol Direct 48 VLDL Cholesterol 15.0 HDL Cholesterol 50 TSH 1.77 Urine Color Urine Appearance Urine pH Ur Specific Parker Urine Protein Urine Glucose (UA) Urine Ketones Urine Blood Urine Nitrite Urine Bilirubin Urine Urobilinogen Ur Leukocyte Esterase Urine WBC (Auto) Urine RBC (Auto) Urine Bacteria (Auto) Urine WBC Clumps Squamous Epi Cells Auto U Non-Squamous Epis Auto Urine Mucus (Auto) Urine Ascorbic Acid EKG Comments: ATRIAL FIBRILLATION, V-RATE 65-106 [AMI1] . BORDERLINE R WAVE PROGRESSION, ANTERIOR LEADS [T0DI] . BORDERLINE T ABNORMALITIES, DIFFUSE LEADS Impressions: Chest X-Ray 10/28/16 10:44 IMPRESSION: NO ACUTE RADIOGRAPHIC FINDING IN THE CHEST. Head CT 10/28/16 11:18 IMPRESSION: No acute intracranial abnormality identified. Plan Discharge Plan: Discharged home to follow-up with primary care Time Spent: Greater than 30 Minutes
== END 2016-10-31 14:23 | disposition home or self-care (01) | DRG 309 ==
LOC: ER 10:35 → UNDOADMIN 15:22 → EH 15:22 → 3S 10-29 00:45
PROVIDERS: ADMIT Emergency Medicine; ATTEND Emergency Medicine
DX: I48.2 Chronic atrial fibrillation (principal); N39.0 Urinary tract infection, site not specified; B96.89 Other specified bacterial agents as the cause of diseases classified elsewhere; E78.5 Hyperlipidemia, unspecified; I10 Essential (primary) hypertension; Z79.899 Other long term (current) drug therapy; Z79.02 Long term (current) use of antithrombotics/antiplatelets
CPT/HCPCS: 36415; 70450; 71010; 80053; 80061; 81001; 82550; 82553; 83880; 84443; 84484; 85025; 85610; 87040; 87086; 87088; 87186; 93005; 93010; 96374; 96375; 99291; J0696; J2405; J2543; J3490; J7030; S0028